=== PATIENT | female | born 1965 | race Caucasian/White ===

== ENCOUNTER 2016-11-18 08:41 | Emergency (ER) | payer SELFPAY | END 2016-11-18 09:05 | disposition home or self-care (01) | LOC: FER 08:41 | DX: M75.32 Calcific tendinitis of left shoulder (principal); F17.210 Nicotine dependence, cigarettes, uncomplicated | CPT/HCPCS: 73030; J1885 ==

== ENCOUNTER 2021-12-13 20:04 | Emergency (ER) | payer OTHER ==
[~2021-12-13 20:04] MED LIST: BACITRACIN15 GM TOP; CIPRO500 MG PO; LEVAQUIN500 MG PO; NORCO 5-325 TA1 EACH PO; ZOFRAN4 MG PO
== END 2021-12-14 04:13 | disposition home or self-care (01) ==
LOC: FER 20:04
DX: M54.2 Cervicalgia (principal); R07.81 Pleurodynia; M25.511 Pain in right shoulder; F17.210 Nicotine dependence, cigarettes, uncomplicated; V43.52XA Car driver injured in collision with other type car in traffic accident, initial encounter
CPT/HCPCS: 70450; 71250; 72125

== ENCOUNTER 2022-03-14 12:07 | Emergency (ER) | payer OTHER ==
[2022-03-14] MEDS ORDERED: NAPROXEN500 MG PO (13:15)
[2022-03-14] MEDS ORDERED: PREDNISONE 20MG20 MG PO (13:15)
[2022-03-14] MEDS ORDERED: BACLOFEN 10MG T10 MG PO (13:17)
== END 2022-03-14 13:30 | disposition home or self-care (01) ==
LOC: FER 12:07
DX: S46.912A Strain of unspecified muscle, fascia and tendon at shoulder and upper arm level, left arm, initial encounter (principal); M77.8 Other enthesopathies, not elsewhere classified; F17.210 Nicotine dependence, cigarettes, uncomplicated; Z88.1 Allergy status to other antibiotic agents; X50.9XXA Other and unspecified overexertion or strenuous movements or postures, initial encounter; Y93.89 Activity, other specified
CPT/HCPCS: 73030; J1100